=== PATIENT | female | born 1955 | race Two or more races ===

== ENCOUNTER → 2021-01-30 | Outpatient (CLI) | payer OTHER | END | disposition home or self-care (01) | LOC: RAD 12:57 | PROVIDERS: ATTEND Physical Medicine & Rehabilitation | DX: M25.532 Pain in left wrist (principal); Z91.81 History of falling ==

== ENCOUNTER → 2021-02-02 | Outpatient (CLI) | payer OTHER | END | disposition home or self-care (01) | LOC: TOM 14:05 | PROVIDERS: ATTEND Orthopaedic Surgery | DX: S52.572A Other intraarticular fracture of lower end of left radius, initial encounter for closed fracture (principal) ==

== ENCOUNTER 2021-03-04 12:05 | Outpatient (CLI) | payer OTHER | END 2021-03-04 12:13 | disposition home or self-care (01) | LOC: RAD 12:05 | PROVIDERS: ATTEND Orthopaedic Surgery | DX: S52.572D Other intraarticular fracture of lower end of left radius, subsequent encounter for closed fracture with routine healing (principal) ==

== ENCOUNTER → 2021-04-17 | Outpatient (CLI) | payer OTHER | END | disposition home or self-care (01) | LOC: RAD 08:43 | PROVIDERS: ATTEND Orthopaedic Surgery | DX: S52.572D Other intraarticular fracture of lower end of left radius, subsequent encounter for closed fracture with routine healing (principal) ==

== ENCOUNTER 2021-08-14 13:03 | Outpatient (CLI) | payer OTHER | END 2021-08-14 13:04 | disposition home or self-care (01) | LOC: NUCLEAR 13:03 | PROVIDERS: ATTEND Internal Medicine Rheumatology | DX: M85.89 Other specified disorders of bone density and structure, multiple sites (principal) ==

== ENCOUNTER 2021-10-13 12:50 | Outpatient (CLI) | payer OTHER | END 2021-10-13 13:00 | disposition home or self-care (01) | LOC: PPH VACUNA 12:50 | PROVIDERS: ATTEND Emergency Medicine Pediatric Emergency Medicine | DX: Z23 Encounter for immunization (principal) ==

== ENCOUNTER 2022-04-06 08:52 | Outpatient (CLI) | payer OTHER | END 2022-04-06 08:56 | disposition home or self-care (01) | LOC: SONOGRAMA 08:52 | PROVIDERS: ATTEND Obstetrics & Gynecology Gynecology | DX: N83.292 Other ovarian cyst, left side (principal); N83.209 Unspecified ovarian cyst, unspecified side; N83.53 Torsion of ovary, ovarian pedicle and fallopian tube; N83.299 Other ovarian cyst, unspecified side ==

== ENCOUNTER 2022-04-26 14:56 | Outpatient (CLI) | payer OTHER | END 2022-04-26 15:06 | disposition home or self-care (01) | LOC: RAD 14:56 | DX: J98.01 Acute bronchospasm (principal); R05.1 Acute cough ==

== ENCOUNTER 2023-01-13 07:58 | Outpatient (CLI) | payer OTHER | END 2023-01-13 08:01 | disposition home or self-care (01) | LOC: NUCLEAR 07:58 | PROVIDERS: ATTEND Dermatology | DX: L97.913 Non-pressure chronic ulcer of unspecified part of right lower leg with necrosis of muscle (principal); I87.2 Venous insufficiency (chronic) (peripheral) ==

== ENCOUNTER 2023-01-14 13:51 | Outpatient (CLI) | payer OTHER | END 2023-01-14 13:52 | disposition home or self-care (01) | LOC: NUCLEAR 13:51 | PROVIDERS: ATTEND Dermatology | DX: L97.913 Non-pressure chronic ulcer of unspecified part of right lower leg with necrosis of muscle (principal) ==

== ENCOUNTER 2023-01-16 15:49 | Emergency (ER) | payer OTHER ==
[~2023-01-16] VITALS: Ht 154.9 cm; Wt 52.2 kg
== END 2023-01-16 18:30 | disposition home or self-care (01) ==
LOC: ER 15:49
DX: L97.519 Non-pressure chronic ulcer of other part of right foot with unspecified severity (principal); B96.89 Other specified bacterial agents as the cause of diseases classified elsewhere
CPT/HCPCS: 90471; 90714; 99282; J1670

== ENCOUNTER 2023-06-13 08:13 | Outpatient (CLI) | payer OTHER | END 2023-06-13 08:15 | disposition home or self-care (01) | LOC: NUCLEAR 08:13 | PROVIDERS: ATTEND Internal Medicine Cardiovascular Disease | DX: I70.213 Atherosclerosis of native arteries of extremities with intermittent claudication, bilateral legs (principal) ==

== ENCOUNTER 2023-06-14 08:11 | Outpatient (CLI) | payer OTHER | END 2023-06-14 08:12 | disposition home or self-care (01) | LOC: NUCLEAR 08:11 | PROVIDERS: ATTEND Internal Medicine Cardiovascular Disease | DX: I87.2 Venous insufficiency (chronic) (peripheral) (principal) ==

== ENCOUNTER 2024-05-22 10:31 | Outpatient (CLI) | payer OTHER | END 2024-05-22 11:00 | disposition home or self-care (01) | LOC: WOUND MED 10:31 | PROVIDERS: ATTEND Specialist | DX: L97.819 Non-pressure chronic ulcer of other part of right lower leg with unspecified severity (principal) | CPT/HCPCS: 97602; A4927; A6199; A6222; A6223 ==

== ENCOUNTER 2024-05-25 14:53 | Outpatient (CLI) | payer OTHER | END 2024-05-25 15:00 | disposition home or self-care (01) | LOC: WOUND MED 14:53 | PROVIDERS: ATTEND Specialist | DX: L97.812 Non-pressure chronic ulcer of other part of right lower leg with fat layer exposed (principal); Z89.511 Acquired absence of right leg below knee; L97.522 Non-pressure chronic ulcer of other part of left foot with fat layer exposed | CPT/HCPCS: 11042; 11045; A4927; A6199; A6219; A6222; A6223; A6251 ==

== ENCOUNTER 2024-06-13 09:25 | Inpatient (IN) | payer OTHER ==
[~2024-06-13] VITALS: Ht 152.4 cm; Wt 111.6 kg
--- NOTE | 2024-06-13 09:57 | NUR ---
PACIENTE ALERTA Y ORIENTADA X 3. REFIERE REFERIDO DE DR DENVER HERNANDEZ PARA POSIBLE ADMISION POR POSIBLE INFECCION EN AREA DE AMPUTACION BARRY PETERSON.
[2024-06-13] MEDS ORDERED: EVOXAC30 MG (10:01)
[2024-06-13] MEDS ORDERED: HYDROXYCHLOROQ100 MG PO (10:02)
[2024-06-13] MEDS ORDERED: ECOTRIN81 MG (10:02)
[2024-06-13] MEDS ORDERED: ATORVASTATIN CA20 MG (10:02)
[2024-06-13] MEDS ORDERED: MEMANTINE HCL5 MG PO (10:02)
[2024-06-13] MEDS ORDERED: TOPROL XL50 M1 (10:03)
[2024-06-13] MEDS ORDERED: GRALISE600 MG (10:03)
[2024-06-13] MEDS ORDERED: VANCOMYCIN HCL 1,000 MG VIAL IV STA (10:28)
[2024-06-13] MEDS ORDERED: 0.9 % SODIUM CHLORIDE 1,000 ML IV STA (10:35)
[2024-06-13] MEDS ORDERED: VANCOMYCIN HCL 1,000 MG VIAL ONE (10:51)
--- NOTE | 2024-06-13 11:11 | NUR ---
SE LE ORIENTA A PACIENTE SOBRE LA ORDEN MEDICA, REFIERE ENTENDER LAS MISMAS. SE CANALIZA Y SE LE COLOCA EL IVF'S, SE LE TOMNA LAS MUETRAS Y SE REALIZA PLACA Y EKG JOANNA LA ORDEN MEDICA.
[2024-06-13 11:56] LABS: HEMATOCRIT 30.4 % (36.0-45.00); HEMOGLOBIN 10.3 g/dL (12.0-15.00); MEAN CELL VOLUME 82.2 fL (80.00-100.00); MEAN CORPUSCULAR HEMOGLOBIN 27.8 pg (27.00-32.0); MEAN CORPUSCULAR HGB CONC 33.8 g/dl (32.0-36.0); PLATELET COUNT 278 K/uL (150-450); RED CELL DISTRIBUTION WIDTH 13.6 % (11.5-14.5)
[2024-06-13 11:58] LABS: PH,URINE 6.5 (5.0-8.0); URINE APPEARANCE Clear; URINE BILIRRUBIN Negative (NEGATIVE); URINE BLOOD Negative; URINE COLOR Yellow; URINE GLUCOSE Negative (NEGATIVE); URINE KETONE Negative (NEGATIVE); URINE LEUKOCYTE Moderate; URINE NITRATE Negative; URINE PROTEIN Negative (NEGATIVE); URINE UROBILINOGEN 0.2 E.U./dl
[2024-06-13 12:02] LABS: URINE BACTERIA 121.1 uL (0.0-1933); URINE EPITHELIAL CELLS 10.6 uL (0.0-38.8); URINE RBC 5.3 uL (0.0-20.8); URINE WBC 53.9 uL (0.0-23.2)
[2024-06-13 12:17] LABS: INR 1.11; PARTIAL THROMBOPLASTIN TIME 26.8 SECONDS (22.0-34.0)
[2024-06-13 12:23] LABS: URINE CAST 0.14 uL (0.0-1.40)
[2024-06-13 12:34] LABS: ALBUMIN 3.1 gm/dL (3.4-5.0); ALKALINE PHOSPHATASE 73 U/L (50-136); ALT/SGPT 22 U/L (12-78); ANION GAP 8 (10.0-20.0); AST/SGOT 26 U/L (15-37); BILIRUBIN TOTAL 0.34 mg/dL (0.3-1.2); BILIRUBIN,CONJUGATED < 0.10 mg/dL (0.0-0.2); BILIRUBIN,UNCONJUGATED 0.24 mg/dL (0.0-0.6); BLOOD UREA NITROGEN 15 mg/dL (7-18); BUN CREA RATIO 28 (7.0-25.0); CALCIUM 9.6 mg/dL (8.5-10.1); CARBON DIOXIDE 29 mEq/L (21-32); CHLORIDE 104 mmol/L (98-107); CREATININE SERUM 0.53 mg/dL (0.55-1.02); GFR 114.38; GLUCOSE FASTING 102 mg/dL (65-100); OSMOLALITY SERUM 275 MOSM/KG (275-295); POTASSIUM 3.71 mEq/L (3.5-5.1); SODIUM 137 mmol/L (136-145); TOTAL PROTEIN 8.5 gm/dL (6.4-8.2)
--- NOTE | 2024-06-13 16:37 | NUR ---
PTE ALERTA Y ORIENTADA X 3 ESFERAS EN CAMA CON BARANDAS ELEVADAS,AREA DE VENOPUNCION PATENTE Y MARJORIE DE EDEMA CON FLUIDOS DE MANTENIMIENTO.PENDIENTE A EVALUACION DE DR AVILA.
[2024-06-13] MEDS ORDERED: CEFTRIAXONE SODIUM 2,000 MG in 0.9 % SODIUM CHLORIDE 100 ML IV SCH (18:57)
[2024-06-13] MEDS ORDERED: GABAPENTIN 800 MG TABLET PO SCH (18:58)
[2024-06-13] MEDS ORDERED: ACETAMINOPHEN 500 MG GEL..CAP PO PRN (19:00)
[2024-06-13] MEDS ORDERED: 0.9 % SODIUM CHLORIDE 1,000 ML IV SCH (19:00)
[2024-06-14 02:29] VITALS: BP 153/86
[2024-06-14 08:52] VITALS: BP 156/83
[2024-06-14] MEDS ORDERED: ATORVASTATIN CALCIUM 20 MG TABLET PO SCH (09:00)
[2024-06-14] MEDS ORDERED: METOPROLOL SUCCINATE 50 MG TAB.SR.24H PO SCH (09:00)
[2024-06-14] MEDS ORDERED: VANCOMYCIN HCL 1,000 MG VIAL IV SCH (09:00)
[2024-06-14] MEDS ORDERED: HYDROXYCHLOROQUINE SULFATE 200 MG TABLET PO SCH (09:00)
[2024-06-14] MEDS ORDERED: MEMANTINE HCL 5 MG TABLET PO SCH (09:00)
[2024-06-14] MEDS ORDERED: FAMOTIDINE/PF 20 MG in 0.9 % SODIUM CHLORIDE 8 ML IV PUSH SCH (09:00)
[2024-06-14] MEDS ORDERED: SODIUM HYPOCHLORITE 1OZ TOP SCH (12:52)
[2024-06-14 18:43] VITALS: BP 185/83
[2024-06-14] MEDS ORDERED: CEFEPIME HCL 2,000 MG VIAL IV SCH (21:00)
[2024-06-14] MEDS ORDERED: VANCOMYCIN HCL 500 MG VIAL IV SCH (21:00)
[2024-06-15 01:51] VITALS: BP 180/76
[2024-06-15 06:37] LABS: HEMATOCRIT 25.7 % (36.0-45.00); MEAN CELL VOLUME 82.2 fL (80.00-100.00); MEAN CORPUSCULAR HGB CONC 34.6 g/dl (32.0-36.0); PLATELET COUNT 209 K/uL (150-450); RED BLOOD COUNT 3.12 M/uL (4.00-6.00); RED CELL DISTRIBUTION WIDTH 13.4 % (11.5-14.5)
[2024-06-15 06:45] LABS: MEAN CORPUSCULAR HEMOGLOBIN 28.5 pg (27.00-32.0)
[2024-06-15 06:46] LABS: HEMOGLOBIN 8.9 g/dL (12.0-15.00)
[2024-06-15 07:02] LABS: CALCIUM 9.2 mg/dL (8.5-10.1); CREATININE SERUM 0.41 mg/dL (0.55-1.02); GFR 153.81
[2024-06-15 07:24] LABS: POTASSIUM 2.89 mEq/L (3.5-5.1)
[2024-06-15 08:47] VITALS: BP 161/76
[2024-06-15] MEDS ORDERED: ENOXAPARIN SODIUM 40 MG/0.4 ML SYRINGE SUBCUTANEO SCH (09:00)
[2024-06-15] MEDS ORDERED: GABAPENTIN 600 MG TABLET PO SCH (09:00)
[2024-06-15] MEDS ORDERED: GABAPENTIN 300 MG CAPSULE PO SCH (09:00)
[2024-06-15] MEDS ORDERED: POTASSIUM CHLORIDE IN WATER 40 MEQ/100 ML PIGGYBAG IV NR (11:15)
[2024-06-15 17:18] VITALS: BP 150/90
[2024-06-16 02:23] VITALS: BP 165/83; O2SAT 97
[2024-06-16] MEDS ORDERED: HYDROXYCHLOROQUINE SULFATE 200 MG TABLET PO SCH ×2 (09:00)
[2024-06-16 09:33] VITALS: BP 150/70
[2024-06-16 19:34] VITALS: BP 190/90; O2SAT 98
[2024-06-16] MEDS ORDERED: ENALAPRILAT DIHYDRATE 1.25 MG/ML VIAL IV PRN (20:00)
[2024-06-16 21:34] VITALS: BP 170/80
[2024-06-17 01:27] VITALS: BP 141/69; O2SAT 96
[2024-06-17 09:41] VITALS: BP 160/74
[2024-06-17] MEDS ORDERED: HYDROXYCHLOROQUINE SULFATE 200 MG TABLET PO SCH (10:00)
[2024-06-17 13:53] LABS: HEMATOCRIT 27.7 % (36.0-45.00); HEMOGLOBIN 9.7 g/dL (12.0-15.00); MEAN CELL VOLUME 80.5 fL (80.00-100.00); MEAN CORPUSCULAR HEMOGLOBIN 28.4 pg (27.00-32.0); MEAN CORPUSCULAR HGB CONC 35.2 g/dl (32.0-36.0); PLATELET COUNT 228 K/uL (150-450); RED BLOOD COUNT 3.44 M/uL (4.00-6.00); RED CELL DISTRIBUTION WIDTH 13.4 % (11.5-14.5)
[2024-06-17 14:39] LABS: ALBUMIN 2.8 gm/dL (3.4-5.0); BILIRUBIN TOTAL 0.45 mg/dL (0.3-1.2); CALCIUM 9.1 mg/dL (8.5-10.1); CREATININE SERUM 0.53 mg/dL (0.55-1.02); GFR 114.38; GLOBULINA 3.9 G/DL (2.4-3.5); TOTAL PROTEIN 6.7 gm/dL (6.4-8.2)
[2024-06-17 14:54] LABS: POTASSIUM 2.92 mEq/L (3.5-5.1)
[2024-06-17] MEDS ORDERED: POTASSIUM CHLORIDE IN WATER 40 MEQ/100 ML PIGGYBAG IV NR (15:00)
[2024-06-17 17:36] VITALS: BP 189/86; O2SAT 97
[2024-06-17 21:32] VITALS: BP 190/80
[2024-06-18 00:35] VITALS: BP 127/56; O2SAT 96
[2024-06-18 07:21] LABS: CALCIUM 9.2 mg/dL (8.5-10.1); CREATININE SERUM 0.43 mg/dL (0.55-1.02); GFR 145.59
[2024-06-18 07:44] LABS: POTASSIUM 2.96 mEq/L (3.5-5.1)
[2024-06-18 08:55] VITALS: BP 142/70
[2024-06-18] MEDS ORDERED: MAGNESIUM SULFATE IN WATER 50 ML IV NR (09:00)
[2024-06-18] MEDS ORDERED: POTASSIUM CHLORIDE IN WATER 100 ML IV NR (11:00)
[2024-06-18 16:58] VITALS: BP 164/82
[2024-06-18] MEDS ORDERED: VANCOMYCIN HCL 5 MG/ML REDILUIDO IV SCH (21:00)
[2024-06-19 01:21] VITALS: BP 121/64
[2024-06-19 07:09] LABS: CALCIUM 9.1 mg/dL (8.5-10.1); CREATININE SERUM 0.42 mg/dL (0.55-1.02); GFR 149.59
[2024-06-19 07:47] LABS: POTASSIUM 2.83 mEq/L (3.5-5.1)
[2024-06-19 08:08] VITALS: BP 135/71
[2024-06-19] MEDS ORDERED: HYDROXYCHLOROQUINE SULFATE 200 MG TABLET PO SCH (09:00)
[2024-06-19] MEDS ORDERED: POTASSIUM BICARBONATE/CIT AC 25 MEQ TABLET.EFF PO SCH (13:00)
[2024-06-19] MEDS ORDERED: POTASSIUM CHLORIDE IN WATER 40 MEQ/100 ML PIGGYBAG IV ONE (13:42)
[2024-06-19 13:43] LABS: RED BLOOD COUNT 3.09 M/uL (4.00-6.00)
[2024-06-19 13:47] LABS: HEMOGLOBIN 8.4 g/dL (12.0-15.00)
[2024-06-19 17:15] VITALS: BP 141/84; O2SAT 97
[2024-06-19 19:29] LABS: CALCIUM 8.8 mg/dL (8.5-10.1); CREATININE SERUM 0.57 mg/dL (0.55-1.02); GFR 105.17; MAGNESIUM 1.9 mg/dL (1.8-2.4); POTASSIUM 4.52 mEq/L (3.5-5.1)
[2024-06-19] MEDS ORDERED: FAMOtidine 20 MG TABLET PO SCH (21:00)
[2024-06-20 00:50] VITALS: BP 184/89
[2024-06-20 06:34] LABS: HEMATOCRIT 29.1 % (36.0-45.00); HEMOGLOBIN 10.2 g/dL (12.0-15.00); MEAN CELL VOLUME 81.1 fL (80.00-100.00); MEAN CORPUSCULAR HEMOGLOBIN 28.5 pg (27.00-32.0); MEAN CORPUSCULAR HGB CONC 35.1 g/dl (32.0-36.0); PLATELET COUNT 200 K/uL (150-450); RED BLOOD COUNT 3.59 M/uL (4.00-6.00); RED CELL DISTRIBUTION WIDTH 13.9 % (11.5-14.5)
[2024-06-20 08:36] VITALS: BP 165/88
[2024-06-20 12:29] LABS: HEMATOCRIT 35.7 % (36.0-45.00); HEMOGLOBIN 11.9 g/dL (12.0-15.00); MEAN CELL VOLUME 82.5 fL (80.00-100.00); MEAN CORPUSCULAR HEMOGLOBIN 27.4 pg (27.00-32.0); MEAN CORPUSCULAR HGB CONC 33.2 g/dl (32.0-36.0); PLATELET COUNT 184 K/uL (150-450); RED BLOOD COUNT 4.32 M/uL (4.00-6.00); RED CELL DISTRIBUTION WIDTH 13.6 % (11.5-14.5)
[2024-06-20] MEDS ORDERED: ACETAMINOPHEN 500 MG GEL..CAP PO SCH (19:36)
[2024-06-20] MEDS ORDERED: OxyCODONE HCL 5 MG TABLET (ROXICODONE) PO PRN (19:45)
[2024-06-20 20:18] VITALS: BP 179/90; O2SAT 98
[2024-06-20] MEDS ORDERED: VANCOMYCIN HCL 1,000 MG VIAL IV SCH (21:00)
[2024-06-21 02:13] VITALS: BP 155/78
[2024-06-21 04:52] LABS: HEMATOCRIT 36.7 % (36.0-45.00); HEMOGLOBIN 12.8 g/dL (12.0-15.00); MEAN CELL VOLUME 81.3 fL (80.00-100.00); MEAN CORPUSCULAR HEMOGLOBIN 28.4 pg (27.00-32.0); PLATELET COUNT 175 K/uL (150-450); RED BLOOD COUNT 4.52 M/uL (4.00-6.00)
[2024-06-21 05:33] LABS: CREATININE SERUM 0.32 mg/dL (0.55-1.02); GFR 204.74
[2024-06-21 06:43] LABS: POTASSIUM 2.75 mEq/L (3.5-5.1)
[2024-06-21] MEDS ORDERED: MORPHINE SULFATE 2 MG/ML CARTRIDGE IV PRN (08:45)
[2024-06-21] MEDS ORDERED: OxyCODONE HCL 5 MG TABLET (ROXICODONE) PO PRN (09:00)
[2024-06-21] MEDS ORDERED: POTASSIUM CHLORIDE/D5W 20 MEQ/1,000 ML PIGGYBAG IV SCH (09:00)
[2024-06-21] MEDS ORDERED: POTASSIUM BICARBONATE/CIT AC 25 MEQ TABLET.EFF PO SCH (09:00)
[2024-06-21] MEDS ORDERED: ACETAMINOPHEN 500 MG GEL..CAP PO SCH (09:00)
[2024-06-21 09:29] VITALS: BP 176/90
[2024-06-21] MEDS ORDERED: LISINOPRIL 5 MG TABLET PO SCH (12:00)
[2024-06-21 17:23] VITALS: BP 145/80; O2SAT 98
[2024-06-22 01:57] VITALS: BP 113/65
[2024-06-22 05:49] LABS: CALCIUM 8.8 mg/dL (8.5-10.1); CREATININE SERUM 0.41 mg/dL (0.55-1.02); GFR 153.81; POTASSIUM 3.08 mEq/L (3.5-5.1)
[2024-06-22] MEDS ORDERED: SPIRONOLACTONE 50 MG TABLET PO NR (12:00)
[2024-06-22] MEDS ORDERED: POTASSIUM CHLORIDE 10 MEQ CAPSULE PO SCH (12:00)
[2024-06-22 12:28] VITALS: BP 142/79
[2024-06-22 16:51] VITALS: BP 140/88
[2024-06-23 00:52] VITALS: BP 144/73
[2024-06-23 07:46] LABS: CREATININE SERUM 0.38 mg/dL (0.55-1.02); GFR 167.91; MAGNESIUM 1.8 mg/dL (1.8-2.4); POTASSIUM 4.04 mEq/L (3.5-5.1)
[2024-06-23] MEDS ORDERED: SPIRONOLACTONE 50 MG TABLET PO SCH (09:00)
[2024-06-23 09:21] VITALS: BP 164/84; O2SAT 99
== END 2024-06-23 12:10 | disposition home or self-care (01) | DRG 476 ==
LOC: ER 09:28 → MEDJ 19:23
PROVIDERS: General Practice; Internal Medicine; Surgery; ADMIT Student in an Organized Health Care Education/Training Program; ATTEND Student in an Organized Health Care Education/Training Program
PROC: B54MZZZ Ultrasonography of Right Upper Extremity Veins (ICD-10-PCS; 2024-06-18)
PROC: 8E0ZXY6 Isolation (ICD-10-PCS; 2024-06-19)
PROC: 02HV33Z Insertion of Infusion Device into Superior Vena Cava, Percutaneous Approach (ICD-10-PCS; 2024-06-19)
PROC: 30243N1 Transfusion of Nonautologous Red Blood Cells into Central Vein, Percutaneous Approach (ICD-10-PCS; 2024-06-19)
PROC: 0Y6H0Z1 Detachment at Right Lower Leg, High, Open Approach (ICD-10-PCS; principal; 2024-06-20 14:30)
DX: T87.43 Infection of amputation stump, right lower extremity (principal); B96.5 Pseudomonas (aeruginosa) (mallei) (pseudomallei) as the cause of diseases classified elsewhere; L97.519 Non-pressure chronic ulcer of other part of right foot with unspecified severity

== ENCOUNTER 2024-10-30 12:16 | Outpatient (CLI) | payer OTHER ==
[~2024-10-30 12:16] MED LIST: ATORVASTATIN CA20 MG; ECOTRIN81 MG; EVOXAC30 MG; GRALISE600 MG; HYDROXYCHLOROQ100 MG PO; MEMANTINE HCL5 MG PO; TOPROL XL50 M1
== END 2024-10-30 12:22 | disposition home or self-care (01) ==
LOC: RAD 12:16
PROVIDERS: ATTEND Physical Medicine & Rehabilitation
DX: M25.512 Pain in left shoulder (principal)

== ENCOUNTER 2024-12-18 09:26 | Outpatient (CLI) | payer OTHER | END 2024-12-18 09:27 | disposition home or self-care (01) | LOC: NUCLEAR 09:26 | DX: I87.2 Venous insufficiency (chronic) (peripheral) (principal) ==

== ENCOUNTER 2024-12-18 12:11 | Outpatient (CLI) | payer OTHER | END 2024-12-18 12:13 | disposition home or self-care (01) | LOC: RAD 12:11 | PROVIDERS: ATTEND Specialist | DX: M79.672 Pain in left foot (principal) ==

== ENCOUNTER 2024-12-20 09:42 | Outpatient (CLI) | payer OTHER | END 2024-12-20 09:48 | disposition home or self-care (01) | LOC: NUCLEAR 09:42 | PROVIDERS: ATTEND Specialist | DX: I73.9 Peripheral vascular disease, unspecified (principal) ==

== ENCOUNTER 2024-12-24 14:45 | Inpatient (IN) | payer OTHER ==
[~2024-12-24] VITALS: Ht 149.9 cm; Wt 49.9 kg
--- NOTE | 2024-12-24 15:13 | NUR ---
PACIENTE CON ULCERA EN PIERNA IZQ EN TRATAMIENTO QUE NO MEJORA POR LO CUAL ES REFERIDA PARA ADMISION POR DR KORTNEY HOPPER. PACIENTE CON AMPUTACION EN PIERNA DERECHA QUE NO FUE AQUI RAJNI DR GOFF ALEKSANDAR INTERVINO CON LA MISMA.
[2024-12-24] MEDS ORDERED: CELLCEPT500 MG PO (15:16)
[2024-12-24] MEDS ORDERED: LEVOFLOXACIN500 MG PO (15:17)
[2024-12-24] MEDS ORDERED: ENTRESTO 24 MG1 EACH PO (15:17)
[2024-12-24] MEDS ORDERED: JARDIANCE10 MG PO (15:17)
--- NOTE | 2024-12-24 16:51 | NUR ---
SE LE ORIENTA A PACIENTE SOBRE LA ORDEN MEDICA, REFIERE ENTENDER LAS MISMAS. SE LE EDENILSON LAS MUETRAS Y SE LE REALIZA LA PLACA JOANNA LA ORDEN.
[2024-12-24 16:59] LABS: BASO % 0.2 % (0.1-1.2); EOS # 0.04 (0.04-0.54); EOS % 0.7 % (0.7-7.0); LYMPH # 0.30 (1.18-3.74); LYMPH % 5.3 % (19.3-53.1); MEAN PLATELET VOLUME 9.50 fl (9.4-12.4); MONO # 0.43 (0.24-0.82); MONO % 7.6 % (4.7-12.5); NEUT # 4.87 (1.56-6.13); NEUT % 85.8 % (34.0-71.1); RED CELL DISTRIBUTION WIDTH 13.2 % (11.6-14.4)
[2024-12-24 17:21] LABS: INR 1.07
[2024-12-24 17:24] LABS: URINE APPEARANCE Clear; URINE BILIRRUBIN Negative (NEGATIVE); URINE BLOOD Negative; URINE COLOR Yellow; URINE KETONE Trace (NEGATIVE); URINE LEUKOCYTE Negative; URINE NITRATE Negative; URINE PROTEIN Negative (NEGATIVE); URINE UROBILINOGEN 0.2 E.U./dl
[2024-12-24 17:28] LABS: URINE BACTERIA 10.7 uL (0.0-1933); URINE RBC 28.5 uL (0.0-20.8); URINE WBC 2.5 uL (0.0-23.2)
[2024-12-24 17:39] LABS: ALT/SGPT 26.0 U/L (12-78); AST/SGOT 21.0 U/L (15-37); BILIRUBIN TOTAL 0.6 mg/dL (0.3-1.2); BUN CREA RATIO 48.0 (7.0-25.0); CREATININE SERUM 0.54 mg/dL (0.55-1.02); GFR 111.94; GLOBULINA 4.5 G/DL (2.4-3.5); GLUCOSE FASTING 98.0 mg/dL (65-100); OSMOLALITY SERUM 271.0 MOSM/KG (275-295)
[2024-12-24 17:43] LABS: URINE CAST 0.00 uL (0.0-1.40); URINE EPITHELIAL CELLS 0.9 uL (0.0-38.8); URINE GLUCOSE 500 MG/DL (NEGATIVE)
[2024-12-24] MEDS ORDERED: VANCOMYCIN HCL 1,000 MG VIAL IV SCH (22:27)
[2024-12-24] MEDS ORDERED: CEFTRIAXONE SODIUM 2,000 MG in 0.9 % SODIUM CHLORIDE 100 ML IV SCH (22:27)
[2024-12-24] MEDS ORDERED: FAMOTIDINE/PF 20 MG in 0.9 % SODIUM CHLORIDE 8 ML IV PUSH SCH (22:27)
[2024-12-24] MEDS ORDERED: ACETAMINOPHEN 500 MG GEL..CAP PO PRN (22:30)
[2024-12-24] MEDS ORDERED: 0.9 % SODIUM CHLORIDE 1,000 ML IV SCH (22:45)
[2024-12-25 02:08] LABS: COVID-19 AG NEGATIVE (NEGATIVE)
[2024-12-25 08:00] VITALS: BP 148/74; O2SAT 98
[2024-12-25] MEDS ORDERED: PATIENTS OWN MEDICATION (MEDICAMENTO EN PISO) PO SCH ×3 (09:00)
[2024-12-25] MEDS ORDERED: METOPROLOL SUCCINATE 50 MG TAB.SR.24H PO SCH (09:00)
[2024-12-25] MEDS ORDERED: HYDROXYCHLOROQUINE SULFATE 200 MG TABLET PO SCH (09:00)
[2024-12-25] MEDS ORDERED: MEMANTINE HCL 5 MG TABLET PO SCH (09:00)
[2024-12-25] MEDS ORDERED: ENOXAPARIN SODIUM 40 MG/0.4 ML SYRINGE SUBCUTANEO SCH (09:00)
[2024-12-25] MEDS ORDERED: ATORVASTATIN CALCIUM 20 MG TABLET PO SCH (09:00)
[2024-12-25 16:00] VITALS: BP 157/92; O2SAT 95
[2024-12-25] MEDS ORDERED: VANCOMYCIN HCL 1,000 MG VIAL IV SCH (21:00)
[2024-12-26 00:59] VITALS: BP 141/73; O2SAT 100
[2024-12-26 08:00] VITALS: BP 148/73; O2SAT 99
[2024-12-26 08:02] LABS: ALT/SGPT 23.0 U/L (12-78); AST/SGOT 21.0 U/L (15-37); BILIRUBIN TOTAL 0.46 mg/dL (0.3-1.2); BUN CREA RATIO 24.0 (7.0-25.0); CREATININE SERUM 0.55 mg/dL (0.55-1.02); GFR 109.59; GLOBULINA 3.8 G/DL (2.4-3.5); GLUCOSE FASTING 90.0 mg/dL (65-100); OSMOLALITY SERUM 272.0 MOSM/KG (275-295)
[2024-12-26 09:50] LABS: BASO % 0.2 % (0.1-1.2); EOS # 0.09 (0.04-0.54); EOS % 2.1 % (0.7-7.0); LYMPH # 0.26 (1.18-3.74); LYMPH % 6.1 % (19.3-53.1); MEAN PLATELET VOLUME 10.30 fl (9.4-12.4); MONO # 0.40 (0.24-0.82); MONO % 9.4 % (4.7-12.5); NEUT # 3.47 (1.56-6.13); NEUT % 81.7 % (34.0-71.1); RED CELL DISTRIBUTION WIDTH 13.5 % (11.6-14.4)
[2024-12-26 16:00] VITALS: BP 164/79; O2SAT 95
[2024-12-26] MEDS ORDERED: CHLORHEXIDINE GLUCONATE 120 ML BOTTLE TOP SCH (17:00)
[2024-12-26] MEDS ORDERED: MUPIROCIN 22 GM OINT..GM TUBE NASAL SCH (17:00)
[2024-12-27 01:52] VITALS: BP 146/78; O2SAT 100
[2024-12-27 08:00] VITALS: BP 142/72; O2SAT 99
[2024-12-28 02:14] VITALS: BP 126/77; O2SAT 100
[2024-12-28 08:00] VITALS: BP 121/77; O2SAT 98
[2024-12-28 16:00] VITALS: BP 146/75; O2SAT 98
[2024-12-28] MEDS ORDERED: CLOPIDOGREL BISULFATE 75 MG TABLET PO SCH (18:45)
[2024-12-28] MEDS ORDERED: ASPIRIN 81 MG TABLET.EC PO SCH (18:45)
[2024-12-29 01:33] VITALS: BP 134/79; O2SAT 100
[2024-12-29 07:58] LABS: BASO % 0.2 % (0.1-1.2); EOS # 0.11 (0.04-0.54); EOS % 2.2 % (0.7-7.0); LYMPH # 0.31 (1.18-3.74); LYMPH % 6.2 % (19.3-53.1); MEAN PLATELET VOLUME 10.30 fl (9.4-12.4); MONO # 0.46 (0.24-0.82); MONO % 9.3 % (4.7-12.5); NEUT # 4.07 (1.56-6.13); NEUT % 81.9 % (34.0-71.1); RED CELL DISTRIBUTION WIDTH 13.9 % (11.6-14.4)
[2024-12-29 08:00] VITALS: BP 129/74; O2SAT 97
[2024-12-29 08:19] LABS: BUN CREA RATIO 19.0 (7.0-25.0); CREATININE SERUM 0.52 mg/dL (0.55-1.02); GFR 116.92; GLUCOSE FASTING 88.0 mg/dL (65-100); OSMOLALITY SERUM 282.0 MOSM/KG (275-295)
[2024-12-29] MEDS ORDERED: CLOPIDOGREL BISULFATE 75 MG TABLET PO SCH (09:00)
[2024-12-29] MEDS ORDERED: ASPIRIN 81 MG TABLET.EC PO SCH (09:00)
[2024-12-29 16:00] VITALS: BP 101/74; O2SAT 100
[2024-12-30 01:21] VITALS: BP 139/73; O2SAT 100
[2024-12-30 08:00] VITALS: BP 119/76; O2SAT 99
[2024-12-30] MEDS ORDERED: LOSARTAN POTASSIUM 25 MG TABLET PO NR (11:00)
[2024-12-30 16:00] VITALS: BP 160/80; O2SAT 100
[2024-12-31 01:01] VITALS: BP 161/82; O2SAT 98
[2024-12-31] MEDS ORDERED: LOSARTAN POTASSIUM 25 MG TABLET PO SCH (09:00)
[2024-12-31 09:44] VITALS: BP 143/85; O2SAT 97
== END 2024-12-31 13:05 | disposition home or self-care (01) | DRG 581 ==
LOC: ER 14:45 → SEC-K 22:55 → SURH 22:55
PROVIDERS: General Practice; Internal Medicine Infectious Disease; Student in an Organized Health Care Education/Training Program; ADMIT Internal Medicine; ATTEND Internal Medicine
PROC: 0HBNXZZ Excision of Left Foot Skin, External Approach (ICD-10-PCS; 2024-12-26)
PROC: 047L34Z Dilation of Left Femoral Artery with Drug-eluting Intraluminal Device, Percutaneous Approach (ICD-10-PCS; principal; 2024-12-27)
PROC: 047Q3ZZ Dilation of Left Anterior Tibial Artery, Percutaneous Approach (ICD-10-PCS; 2024-12-27)
PROC: 04CL3ZZ Extirpation of Matter from Left Femoral Artery, Percutaneous Approach (ICD-10-PCS; 2024-12-27)
PROC: 04CN3ZZ Extirpation of Matter from Left Popliteal Artery, Percutaneous Approach (ICD-10-PCS; 2024-12-27)
PROC: 04CQ3ZZ Extirpation of Matter from Left Anterior Tibial Artery, Percutaneous Approach (ICD-10-PCS; 2024-12-27)
PROC: 047N34Z Dilation of Left Popliteal Artery with Drug-eluting Intraluminal Device, Percutaneous Approach (ICD-10-PCS; 2024-12-27)
PROC: 047U3ZZ Dilation of Left Peroneal Artery, Percutaneous Approach (ICD-10-PCS; 2024-12-27)
DX: L97.529 Non-pressure chronic ulcer of other part of left foot with unspecified severity (principal); L08.9 Local infection of the skin and subcutaneous tissue, unspecified; B95.8 Unspecified staphylococcus as the cause of diseases classified elsewhere; B95.2 Enterococcus as the cause of diseases classified elsewhere; B96.89 Other specified bacterial agents as the cause of diseases classified elsewhere; I73.00 Raynaud's syndrome without gangrene; M35.00 Sjogren syndrome, unspecified; G30.9 Alzheimer's disease, unspecified; F02.80 Dementia in other diseases classified elsewhere, unspecified severity, without behavioral disturbance, psychotic disturbance, mood disturbance, and anxiety; E78.5 Hyperlipidemia, unspecified

== ENCOUNTER 2025-01-04 10:39 | Outpatient (CLI) | payer OTHER ==
[~2025-01-04 10:39] MED LIST changes: +CELLCEPT500 MG PO; +ENTRESTO 24 MG1 EACH PO; +JARDIANCE10 MG PO; +LEVOFLOXACIN500 MG PO
== END 2025-01-04 11:00 | disposition home or self-care (01) ==
LOC: WOUND MED 10:39 → WOUND CARE 10:39 → WOUND MED 11:00
PROVIDERS: ATTEND Specialist
DX: L97.522 Non-pressure chronic ulcer of other part of left foot with fat layer exposed (principal)
CPT/HCPCS: 11042; A4927; A6223; A6248

== ENCOUNTER 2025-01-29 10:15 | Outpatient (CLI) | payer OTHER | END 2025-01-29 11:00 | disposition home or self-care (01) | LOC: WOUND CARE 10:15 → WOUND MED 10:15 | PROVIDERS: ATTEND Specialist | DX: L97.522 Non-pressure chronic ulcer of other part of left foot with fat layer exposed (principal) | CPT/HCPCS: 11042; A4927; A6219; A6223 ==

== ENCOUNTER 2025-02-05 13:42 | Outpatient (CLI) | payer OTHER | END 2025-02-05 14:00 | disposition home or self-care (01) | LOC: WOUND MED 13:42 → WOUND CARE 13:42 → WOUND MED 14:00 | PROVIDERS: ATTEND Specialist | DX: L97.522 Non-pressure chronic ulcer of other part of left foot with fat layer exposed (principal) | CPT/HCPCS: 11042; A4927; A6219; A6223 ==

== ENCOUNTER 2025-02-12 12:04 | Outpatient (CLI) | payer OTHER | END 2025-02-12 13:04 | disposition home or self-care (01) | LOC: WOUND MED 12:04 → WOUND CARE 12:04 → WOUND MED 13:04 | PROVIDERS: ATTEND Specialist | DX: L97.522 Non-pressure chronic ulcer of other part of left foot with fat layer exposed (principal) | CPT/HCPCS: 11042; A4927; A6219; A6223 ==

== ENCOUNTER 2025-03-19 10:44 | Outpatient (CLI) | payer OTHER | END 2025-03-19 11:44 | disposition home or self-care (01) | LOC: WOUND CARE 10:44 → WOUND MED 10:44 | PROVIDERS: ATTEND Specialist | DX: L97.522 Non-pressure chronic ulcer of other part of left foot with fat layer exposed (principal) | CPT/HCPCS: 11042; A4927; A6219; A6223; A6248 ==

== ENCOUNTER 2025-05-01 16:20 | Inpatient (IN) | payer OTHER ==
[~2025-05-01] VITALS: Ht 152.4 cm; Wt 0.5 kg
[2025-05-01] MEDS ORDERED: NITROGLYCERIN IN 5 % DEXTROSE 50 MG/250 ML BOTTLE IV SCH (17:00)
--- NOTE | 2025-05-01 17:10 | NUR ---
PTE ALERTA Y ORIENTADA X3 LLEGA A ER EN AMBULANCIA. PTE REFIERE PRESENTAR DEIFICULTAD RESPIRATORIA. AL MOMENTO DE TRIAGE PTE CON CANULA NASAL A 3 L/M CON SATURACION EN 88% SE REALIZA EKG Y SE PRESENTA A DR. JC Y HEATH QUE SE UBIQUE PTE EN CRITICO.
--- NOTE | 2025-05-01 17:30 | NUR ---
SE CONECTA PACIENTE A MONITOR CARDIACO Y OXIMETRIA DE PULSO. SE COLECTAN MUESTRAS DE LABORATORIO MEDIANTE MEDIDAS ASEPTICAS. PACIENTE CON CANALIZACION DE AMBULANCIA EN RA CON ANGIO #24 LA MISMA SE ENCUENTRA PATENTE Y MARJORIE DE EDEMA O ERITEMA. SE COLOCA SRINIVASAN MEDIANTE MEDIDAS ESTERILES, SE OBSERVA EGRESO URINARIO COLOR AMARILLO GEGE. SE ADMINISTRAN MEDICAMENTOS JOANNA ORDEN MEDICA.
[2025-05-01] MEDS ORDERED: NITROGLYCERIN IN 5 % DEXTROSE 50 MG/250 ML BOTTLE IV ONE (17:34)
[2025-05-01 17:40] LABS: BASO % 0.1 % (0.1-1.2); EOS # 0.01 (0.04-0.54); EOS % 0.0 % (0.7-7.0); LYMPH # 0.35 (1.18-3.74); LYMPH % 1.4 % (19.3-53.1); MEAN PLATELET VOLUME 10.50 fl (9.4-12.4); MONO # 0.71 (0.24-0.82); MONO % 2.9 % (4.7-12.5); NEUT # 23.43 (1.56-6.13); NEUT % 94.8 % (34.0-71.1); RED CELL DISTRIBUTION WIDTH 14.6 % (11.6-14.4)
[2025-05-01 17:45] LABS: ERYTHROCYTE SEDIMENTATION RATE 83 mm/hr (0-30)
[2025-05-01 17:58] LABS: INR 1.21
[2025-05-01 18:00] LABS: BUN CREA RATIO 33.0 (7.0-25.0); CREATININE SERUM 0.46 mg/dL (0.55-1.02); GFR 134.29; GLUCOSE FASTING 132.0 mg/dL (65-100); OSMOLALITY SERUM 290.0 MOSM/KG (275-295)
[2025-05-01 18:01] LABS: COVID-19 AG NEGATIVE (NEGATIVE)
[2025-05-01 19:14] LABS: URINE APPEARANCE Clear; URINE BILIRRUBIN Negative (NEGATIVE); URINE BLOOD Moderate; URINE COLOR Yellow; URINE GLUCOSE Negative (NEGATIVE); URINE KETONE Negative (NEGATIVE); URINE LEUKOCYTE Negative; URINE NITRATE Negative; URINE PROTEIN Negative (NEGATIVE); URINE UROBILINOGEN 0.2 E.U./dl
[2025-05-01 19:18] LABS: URINE BACTERIA 12.5 uL (0.0-1933); URINE EPITHELIAL CELLS 1.8 uL (0.0-38.8); URINE RBC 379.1 uL (0.0-20.8); URINE WBC 2.6 uL (0.0-23.2)
[2025-05-01] MEDS ORDERED: POTASSIUM CHLORIDE/D5-0.9%NACL 40 MEQ/1,000 ML PIGGYBAG IV ONE (19:30)
[2025-05-01 19:49] LABS: URINE CAST 0.14 uL (0.0-1.40)
[2025-05-01] MEDS ORDERED: CEFTRIAXONE SODIUM 1,000 MG VIAL IM STA (20:45)
[2025-05-01] MEDS ORDERED: VANCOMYCIN HCL 1,000 MG VIAL IV ONE (20:45)
[2025-05-01] MEDS ORDERED: CEFTRIAXONE SODIUM 1,000 MG VIAL ONE (21:49)
[2025-05-01] MEDS ORDERED: VANCOMYCIN HCL 1,000 MG VIAL IV STA (21:55)
[2025-05-01] MEDS ORDERED: VANCOMYCIN HCL 1,000 MG VIAL ONE (22:34)
--- NOTE | 2025-05-02 00:44 | NUR ---
SE RECIBE A PTE DE TURNO ANTERIOR EN UNIDAD DE CRITICO. PTE ALERTA Y ORIENTADA X3. SE OBSERVA CONNECTADA A MONITOR CARDIACO Y OXIMETRIA DE PULSO. SE OBSERVA EN BIPAP, MABEL INTACTO. SE OBSERVA RECIBIENDO TRIDIL 50MG/250ML BAJANDO A 5ML/HR. VANCOMYCIN 1000MG/250ML, KCL 40MEQ/D5/0.9NSS BAJANDO A 125ML/HR. SE OBSERVA A PTE CON ABDOMEN BLANDO Y DEPRESIBLE AL TACTO. SE OBSERVA PTE CON SRINIVASAN BAJANDO A GRAVEDAD CON RETORNO DE ORINA COLOR ROJIZA. SE OBSERVA PIE LT AMPUTADO. EXTREMIDAD RT MARJORIE DE EDEMA. PTE CON CT IV PENDIENTE A REALIZAR.
--- NOTE | 2025-05-02 08:00 | NUR ---
SE RECIBE CLIENTE UBICADO EN CRITICO #3 CONECTADA A MONITOR CARDIACO , OXIMETRIA [facility], BI-PAP CON PARAMETROS IPAP:14, EPAP:7,FO:100, RATE/MIN 16. SE EDENILSON SIGNOS VITALES, IVSF PATENTES Y AREAS DE VENOPUNCION PATENTES Y MARJORIE DE EDEMA. CLIENTE ES ORIENTADO SOBRE PROCEDIMIENTOS REALIZADOS , SEGUIMIENTO DE TRATAMIENTO Y PROCESO DE RE-EVALUACION Y SEGUIMIENTO DE CON[facility]ION [facility]. CLIENTE ALERTA Y ORIENTADO LONNY INTERVENCION POR PERSONAL RN Y SE MANTIENE EN OBSERVACION POR CAMBIOS SIGNIFICATIVOS DENTRO DE WALLER CONDICION.
[2025-05-02] MEDS ORDERED: ENALAPRILAT DIHYDRATE 2.5 MG/2 ML VIAL IV ONE (10:30)
[2025-05-02] MEDS ORDERED: ENALAPRILAT DIHYDRATE 1.25 MG/ML VIAL IV ONE (11:21)
[2025-05-02] MEDS ORDERED: LEVALBUTEROL HCL 1.25 MG/3 ML SOLUTION IH SCH (11:38)
[2025-05-02] MEDS ORDERED: FAMOTIDINE/PF 20 MG in 0.9 % SODIUM CHLORIDE 8 ML IV PUSH SCH (11:42)
[2025-05-02] MEDS ORDERED: ASPIRIN 81 MG TAB.CHEW PO SCH (11:42)
[2025-05-02] MEDS ORDERED: ENOXAPARIN SODIUM 60 MG/0.6 ML SYRINGE SUBCUTANEO SCH (11:43)
[2025-05-02] MEDS ORDERED: ATORVASTATIN CALCIUM 40 MG TABLET PO SCH (11:44)
[2025-05-02] MEDS ORDERED: PATIENTS OWN MEDICATION (MEDICAMENTO EN PISO) PO SCH (11:44)
[2025-05-02] MEDS ORDERED: MAGNESIUM SULFATE 1,000 MG in 0.9 % SODIUM CHLORIDE 50 ML IV ONE (11:45)
[2025-05-02] MEDS ORDERED: ACETAMINOPHEN 500 MG GEL..CAP PO PRN (11:45)
[2025-05-02] MEDS ORDERED: IPRATROPIUM BROMIDE 0.5 MG/2.5 ML AMPUL.NEB IH SCH (12:00)
[2025-05-02] MEDS ORDERED: MAGNESIUM SULFATE/D5W 100 ML IV ONE (12:30)
[2025-05-02] MEDS ORDERED: POTASSIUM CHLORIDE IN WATER 100 ML IV SCH (13:00)
[2025-05-02 13:33] VITALS: BP 169/79
[2025-05-02 13:59] VITALS: BP 169/79; O2SAT 100
[2025-05-02] MEDS ORDERED: MEROPENEM 500 MG/VIAL VIAL IV SCH (14:00)
[2025-05-02] MEDS ORDERED: VANCOMYCIN HCL 1,000 MG VIAL ONE (15:46)
[2025-05-02 16:04] VITALS: BP 155/75; O2SAT 99
[2025-05-02 17:00] VITALS: BP 160/78; O2SAT 99
[2025-05-02] MEDS ORDERED: VANCOMYCIN HCL 5 MG/ML REDILUIDO IV SCH (17:00)
[2025-05-02] MEDS ORDERED: VANCOMYCIN HCL 1,000 MG VIAL IV SCH (17:00)
[2025-05-02] MEDS ORDERED: IPRATROPIUM BROMIDE 0.5 MG/2.5 ML AMPUL.NEB IH ONE (17:52)
[2025-05-02] MEDS ORDERED: LEVALBUTEROL HCL 0.63 MG/3 ML SOLUTION IH ONE (17:53)
[2025-05-02 18:00] VITALS: BP 170/77; O2SAT 99
[2025-05-02] MEDS ORDERED: AZITHROMYCIN 500 MG VIAL IV ONE (18:26)
[2025-05-02 19:00] VITALS: BP 141/73; O2SAT 99
[2025-05-02] MEDS ORDERED: PREDNISONE 10 MG TABLET PO SCH (20:12)
[2025-05-02] MEDS ORDERED: AMIODARONE HCL 50 MG/ML AMPUL IV ONE ×2 (20:53→23:00)
[2025-05-02] MEDS ORDERED: AMIODARONE HCL 900 MG/500 ML KIT IV ONE (20:53)
[2025-05-02] MEDS ORDERED: AMIODARONE HCL 900 MG in DEXTROSE 5 % IN WATER 500 ML IV SCH (23:00)
[2025-05-02] MEDS ORDERED: POTASSIUM CHLORIDE 20MEQ/100ML H2O PB IV ONE (23:16)
[2025-05-03] VITALS (12 sets, daily range): BP systolic 123–179; BP diastolic 61–91; O2SAT 94–100
[2025-05-03 06:55] LABS: CHOL HDL RATIO 2.0 (0-5.0); HDL 62.0 mg/dl (40-60); LDL 44.0 mg/dl (0-130); TSH 0.65 uIU/mL (0.358-3.74); VLDL 19.0 (0-39)
[2025-05-03] MEDS ORDERED: MEMANTINE HCL 5 MG TABLET PO SCH (09:00)
[2025-05-03] MEDS ORDERED: METOPROLOL TARTRATE 25 MG TABLET PO SCH (09:00)
[2025-05-03] MEDS ORDERED: FAMOTIDINE/PF 20 MG/2 ML VIAL ONE (09:35)
[2025-05-03] MEDS ORDERED: AMIODARONE HCL 200 MG TABLET PO SCH (17:00)
[2025-05-03] MEDS ORDERED: VANCOMYCIN HCL 5 MG/ML REDILUIDO IV SCH (17:00)
[2025-05-03] MEDS ORDERED: OSELTAMIVIR PHOSPHATE 75 MG CAPSULE PO SCH (17:00)
[2025-05-03] MEDS ORDERED: LEVALBUTEROL HCL 1.25 MG/3 ML SOLUTION IH SCH (18:00)
[2025-05-04] VITALS (14 sets, daily range): BP systolic 115–164; BP diastolic 60–80; O2SAT 96–100
[2025-05-04] MEDS ORDERED: ENOXAPARIN SODIUM 60 MG/0.6 ML SYRINGE SUBCUTANEO ONE (00:18)
[2025-05-04 07:42] LABS: BASO % 0.0 % (0.1-1.2); EOS # 0.05 (0.04-0.54); EOS % 0.6 % (0.7-7.0); LYMPH # 0.31 (1.18-3.74); LYMPH % 3.7 % (19.3-53.1); MEAN PLATELET VOLUME 10.70 fl (9.4-12.4); MONO # 0.65 (0.24-0.82); MONO % 7.8 % (4.7-12.5); NEUT # 7.32 (1.56-6.13); NEUT % 87.3 % (34.0-71.1); RED CELL DISTRIBUTION WIDTH 14.4 % (11.6-14.4)
[2025-05-04 07:51] LABS: ALT/SGPT 30.0 U/L (12-78); AST/SGOT 29.0 U/L (15-37); BILIRUBIN TOTAL 1.12 mg/dL (0.3-1.2); BUN CREA RATIO 31.0 (7.0-25.0); CREATININE SERUM 0.49 mg/dL (0.55-1.02); GFR 124.85; GLOBULINA 3.2 G/DL (2.4-3.5); GLUCOSE FASTING 84.0 mg/dL (65-100); LDH 410.0 U/L (84-246); OSMOLALITY SERUM 285.0 MOSM/KG (275-295)
[2025-05-05] VITALS (8 sets, daily range): BP systolic 150–153; BP diastolic 73–82; O2SAT 86–100
[2025-05-05] MEDS ORDERED: METHYLPREDNISOLONE SOD SUCC 40 MG VIAL IV NR (14:00)
[2025-05-05] MEDS ORDERED: GABAPENTIN 300 MG CAPSULE PO SCH (17:00)
[2025-05-05] MEDS ORDERED: POTASSIUM CHLORIDE IN WATER 100 ML IV ONE (21:15)
[2025-05-06] VITALS (9 sets, daily range): BP systolic 138–163; BP diastolic 74–87; O2SAT 90–100
[2025-05-06] MEDS ORDERED: POTASSIUM CHLORIDE 10 MEQ CAPSULE PO SCH
[2025-05-06] MEDS ORDERED: METHYLPREDNISOLONE SOD SUCC 40 MG VIAL IV SCH (09:00)
[2025-05-06 17:11] LABS: BASO % 0.0 % (0.1-1.2); EOS # 0.12 (0.04-0.54); EOS % 1.6 % (0.7-7.0); LYMPH # 0.39 (1.18-3.74); LYMPH % 5.3 % (19.3-53.1); MEAN PLATELET VOLUME 11.00 fl (9.4-12.4); MONO # 0.51 (0.24-0.82); MONO % 7.0 % (4.7-12.5); NEUT # 6.29 (1.56-6.13); NEUT % 85.8 % (34.0-71.1); RED CELL DISTRIBUTION WIDTH 14.4 % (11.6-14.4)
[2025-05-06 17:32] LABS: BUN CREA RATIO 33.0 (7.0-25.0); CREATININE SERUM 0.51 mg/dL (0.55-1.02); GFR 119.22; GLUCOSE FASTING 119.0 mg/dL (65-100); OSMOLALITY SERUM 278.0 MOSM/KG (275-295)
[2025-05-06] MEDS ORDERED: POTASSIUM CHLORIDE 10 MEQ CAPSULE PO STA (17:55)
[2025-05-07] VITALS (9 sets, daily range): BP systolic 135–137; BP diastolic 72–80; O2SAT 74–98
[2025-05-07] MEDS ORDERED: GUAIFENESIN 200 MG/10 ML BLIST.PACK PO SCH
[2025-05-07] MEDS ORDERED: POTASSIUM CHLORIDE 10 MEQ CAPSULE PO SCH
[2025-05-07] MEDS ORDERED: PREDNISONE 5 MG TABLET PO SCH ×2 (09:00)
[2025-05-07] MEDS ORDERED: SPIRONOLACTONE 50 MG TABLET PO NR (13:00)
[2025-05-07 14:49] LABS: BUN CREA RATIO 36.0 (7.0-25.0); CREATININE SERUM 0.39 mg/dL (0.55-1.02); GFR 162.47; GLUCOSE FASTING 95.0 mg/dL (65-100); OSMOLALITY SERUM 276.0 MOSM/KG (275-295)
[2025-05-08] VITALS: BP 145/79; O2SAT 99
[2025-05-08 00:06] LABS: BASO % 0.1 % (0.1-1.2); EOS # 0.12 (0.04-0.54); EOS % 1.8 % (0.7-7.0); LYMPH # 0.53 (1.18-3.74); LYMPH % 7.9 % (19.3-53.1); MEAN PLATELET VOLUME 11.50 fl (9.4-12.4); MONO # 0.70 (0.24-0.82); MONO % 10.4 % (4.7-12.5); NEUT # 5.33 (1.56-6.13); NEUT % 79.5 % (34.0-71.1); RED CELL DISTRIBUTION WIDTH 14.1 % (11.6-14.4)
[2025-05-08 00:12] VITALS: O2SAT 93
[2025-05-08 02:48] VITALS: O2SAT 90
[2025-05-08] MEDS ORDERED: SPIRONOLACTONE 50 MG TABLET PO SCH (09:00)
[2025-05-08 10:25] VITALS: BP 164/88; O2SAT 100
[2025-05-08 13:54] VITALS: O2SAT 99
[2025-05-08 15:00] VITALS: BP 105/67; O2SAT 100
[2025-05-09] VITALS: BP 130/78; O2SAT 97
[2025-05-09 08:00] VITALS: BP 166/90; O2SAT 97
[2025-05-09 15:00] VITALS: BP 145/81; O2SAT 100
[2025-05-09 15:25] LABS: BUN CREA RATIO 48.0 (7.0-25.0); CREATININE SERUM 0.4 mg/dL (0.55-1.02); GFR 157.8; GLUCOSE FASTING 110.0 mg/dL (65-100); OSMOLALITY SERUM 282.0 MOSM/KG (275-295)
[2025-05-10 00:34] VITALS: BP 109/70; O2SAT 97
[2025-05-10 08:00] VITALS: BP 136/83; O2SAT 100
[2025-05-10 08:01] LABS: BASO % 0.2 % (0.1-1.2); EOS # 0.16 (0.04-0.54); EOS % 3.9 % (0.7-7.0); LYMPH # 0.45 (1.18-3.74); LYMPH % 10.8 % (19.3-53.1); MEAN PLATELET VOLUME 11.70 fl (9.4-12.4); MONO # 0.41 (0.24-0.82); MONO % 9.9 % (4.7-12.5); NEUT # 3.11 (1.56-6.13); NEUT % 75.0 % (34.0-71.1); RED CELL DISTRIBUTION WIDTH 14.4 % (11.6-14.4)
[2025-05-10 15:00] VITALS: BP 143/83; O2SAT 100
[2025-05-10] MEDS ORDERED: MEROPENEM 500 MG/VIAL VIAL IV SCH (20:00)
[2025-05-11 00:32] VITALS: BP 138/79; O2SAT 98
[2025-05-11 07:16] LABS: BASO % 0.2 % (0.1-1.2); EOS # 0.11 (0.04-0.54); EOS % 2.6 % (0.7-7.0); LYMPH # 0.33 (1.18-3.74); LYMPH % 7.7 % (19.3-53.1); MEAN PLATELET VOLUME 11.90 fl (9.4-12.4); MONO # 0.30 (0.24-0.82); MONO % 7.0 % (4.7-12.5); NEUT # 3.52 (1.56-6.13); NEUT % 82.0 % (34.0-71.1); RED CELL DISTRIBUTION WIDTH 14.3 % (11.6-14.4)
[2025-05-11 07:49] LABS: BUN CREA RATIO 47.0 (7.0-25.0); CREATININE SERUM 0.51 mg/dL (0.55-1.02); GFR 119.22; GLUCOSE FASTING 106.0 mg/dL (65-100); OSMOLALITY SERUM 288.0 MOSM/KG (275-295)
[2025-05-11 08:24] VITALS: BP 130/74; O2SAT 100
[2025-05-11 16:17] VITALS: BP 145/78; O2SAT 99
[2025-05-12 00:18] VITALS: BP 148/83; O2SAT 99
[2025-05-12 08:00] VITALS: BP 127/77; BP 129/65; O2SAT 100; O2SAT 96
[2025-05-12] MEDS ORDERED: SPIRONOLACTONE 25 MG TABLET PO SCH (09:00)
[2025-05-12 16:00] VITALS: BP 146/79; O2SAT 99
[2025-05-13] VITALS: BP 116/78; O2SAT 100
[2025-05-13 08:26] VITALS: BP 171/82; O2SAT 100
[2025-05-13 09:15] LABS: BASO % 0.4 % (0.1-1.2); EOS # 0.19 (0.04-0.54); EOS % 3.7 % (0.7-7.0); LYMPH # 0.33 (1.18-3.74); LYMPH % 6.4 % (19.3-53.1); MEAN PLATELET VOLUME 11.20 fl (9.4-12.4); MONO # 0.34 (0.24-0.82); MONO % 6.6 % (4.7-12.5); NEUT # 4.22 (1.56-6.13); NEUT % 82.3 % (34.0-71.1); RED CELL DISTRIBUTION WIDTH 14.7 % (11.6-14.4)
[2025-05-13 15:00] VITALS: BP 163/92; O2SAT 100
[2025-05-13] MEDS ORDERED: ACETAMINOPHEN 500 MG GEL..CAP PO SCH (17:00)
[2025-05-13] MEDS ORDERED: MORPHINE SULFATE 2 MG/ML SYRINGE IV PRN (17:00)
[2025-05-14 01:00] VITALS: BP 123/73; O2SAT 97
[2025-05-14 06:37] LABS: BASO % 0.2 % (0.1-1.2); EOS # 0.22 (0.04-0.54); EOS % 4.1 % (0.7-7.0); LYMPH # 0.50 (1.18-3.74); LYMPH % 9.4 % (19.3-53.1); MEAN PLATELET VOLUME 11.60 fl (9.4-12.4); MONO # 0.54 (0.24-0.82); MONO % 10.2 % (4.7-12.5); NEUT # 4.03 (1.56-6.13); NEUT % 75.7 % (34.0-71.1); RED CELL DISTRIBUTION WIDTH 14.8 % (11.6-14.4)
[2025-05-14 08:00] VITALS: BP 112/65; O2SAT 99
[2025-05-14 16:28] VITALS: BP 143/80; O2SAT 100
[2025-05-15] VITALS: BP 112/76; O2SAT 100
[2025-05-15 08:00] VITALS: BP 118/68; O2SAT 100
== END 2025-05-15 12:30 | disposition home or self-care (01) | DRG 853 ==
LOC: ER 16:20 → SURH 05-02 13:56 → ICU-2 05-02 13:56 → SEC-K 05-03 23:33 → SURH 05-04 13:44
PROVIDERS: General Practice; Internal Medicine; Internal Medicine Infectious Disease; Student in an Organized Health Care Education/Training Program; ADMIT Internal Medicine; ATTEND Internal Medicine
PROC: BB24YZZ Computerized Tomography (CT Scan) of Bilateral Lungs using Other Contrast (ICD-10-PCS; 2025-05-01)
PROC: B246ZZZ Ultrasonography of Right and Left Heart (ICD-10-PCS; 2025-05-02)
PROC: 3E0F7GC Introduction of Other Therapeutic Substance into Respiratory Tract, Via Natural or Artificial Opening (ICD-10-PCS; 2025-05-02)
PROC: B44HZZZ Ultrasonography of Bilateral Lower Extremity Arteries (ICD-10-PCS; 2025-05-02)
PROC: B54DZZZ Ultrasonography of Bilateral Lower Extremity Veins (ICD-10-PCS; 2025-05-03)
PROC: 5A0935A Assistance with Respiratory Ventilation, Less than 24 Consecutive Hours, High Flow/Velocity Cannula (ICD-10-PCS; 2025-05-03)
PROC: 8E0ZXY6 Isolation (ICD-10-PCS; 2025-05-03)
PROC: 4A12X4Z Monitoring of Cardiac Electrical Activity, External Approach (ICD-10-PCS; 2025-05-05)
PROC: 02HV33Z Insertion of Infusion Device into Superior Vena Cava, Percutaneous Approach (ICD-10-PCS; 2025-05-06)
PROC: 30233N1 Transfusion of Nonautologous Red Blood Cells into Peripheral Vein, Percutaneous Approach (ICD-10-PCS; 2025-05-07)
PROC: BH4BZZZ Ultrasonography of Chest Wall (ICD-10-PCS; 2025-05-08)
PROC: 0Y6J0Z2 Detachment at Left Lower Leg, Mid, Open Approach (ICD-10-PCS; principal; 2025-05-13 10:15)
DX: A41.9 Sepsis, unspecified organism (principal); J09.X1 Influenza due to identified novel influenza A virus with pneumonia; I96 Gangrene, not elsewhere classified; E27.40 Unspecified adrenocortical insufficiency; J81.1 Chronic pulmonary edema; I48.20 Chronic atrial fibrillation, unspecified; I50.9 Heart failure, unspecified; I48.91 Unspecified atrial fibrillation; Z86.79 Personal history of other diseases of the circulatory system; Z87.39 Personal history of other diseases of the musculoskeletal system and connective tissue; M32.9 Systemic lupus erythematosus, unspecified; E87.6 Hypokalemia; R09.02 Hypoxemia; L08.89 Other specified local infections of the skin and subcutaneous tissue; G30.9 Alzheimer's disease, unspecified; F02.80 Dementia in other diseases classified elsewhere, unspecified severity, without behavioral disturbance, psychotic disturbance, mood disturbance, and anxiety; D64.9 Anemia, unspecified; I11.0 Hypertensive heart disease with heart failure